=== PATIENT | female | born 1965 | race Caucasian/White ===

== ENCOUNTER 2018-10-09 11:30 | Emergency (ER) | payer BC, SELFPAY ==
[2018-10-09 11:39] VITALS: BP 160/77; PULSE 76; RESP 15; TEMP 36.7; O2SAT 98; BMI 22.4
--- NOTE | 2018-10-09 12:07 | DI.RAD.S_ITS ---
PROCEDURE: XR CHEST 1V INDICATIONS: chest pain TECHNIQUE: One view of the chest was acquired. COMPARISON: None. FINDINGS: Surgical changes and devices: None. Lungs and pleura: Lungs are clear. No pleural effusions or pneumothorax. Mediastinum: Mediastinal contours appear normal. Heart size is normal. Bones and chest wall: No suspicious bony lesions. Overlying soft tissues appear unremarkable. IMPRESSION: No acute cardiopulmonary process. There are no imaging findings to explain patient's chest pain. Dictated by: Bryant Davis M.D. on 10/09/2018 at 12:32 Approved by: Bryant Davis M.D. on 10/09/2018 at 12:33
--- NOTE | 2018-10-09 12:09 | ED.BACK ---
HPI - Back Pain/Injury <JIM Oswald-BC - Last Filed: 10/09/18 18:01> General Chief Complaint: Back Pain/Injury Stated Complaint: pain in back/around front,lightheaded,weak Time Seen by Provider: 10/09/18 11:55 Source: patient and family Mode of arrival: ambulatory Limitations: no limitations History of Present Illness HPI Narrative: The patient is a 53-year-old female nonsmoker with history of PVCs who presents with a chief complaint of squeezing back pain, starts in her mid back and radiates around to the front of her chest. She states this has been going on since 4:00 a.m.. Than earlier today at approximately 11 she had an episode of weakness, felt lightheaded woozy. She denies any nausea, vomiting, diarrhea. She states she has a family history of cardiac disease so she is worried about her heart. She states she felt as though her heart were racing and she was having palpitations. She brings might be musculoskeletal pain due to and work out yesterday, she was on an elliptical with increased resistance and increased range of motion for her arms, so she is concerned that she pulled some muscles. She applied several salon pas patches to her back to see if it would help. Related Data Home Medications Medication Instructions Recorded Confirmed cholecalciferol (vitamin D3) 1,000 unit PO DAILY #0 07/08/12 10/09/18 [Vitamin D3] vitamin B complex 1 tab PO DAILY #0 07/08/12 10/09/18 Ildefonso-E 1 tab PO DAILY 10/09/18 10/09/18 Allergies Allergy/AdvReac Type Severity Reaction Status Date / Time Sulfa (Sulfonamide Allergy Mild Verified 10/09/18 13:27 Antibiotics) Review of Systems <JIM Oswald-BC - Last Filed: 10/09/18 18:01> Review of Systems GENERAL: Denies chills, fatigue, malaise, fever, sweats. HEENT: Denies sinus pain, ear pain, sore throat, difficulty swallowing, dizziness. RESPIRATORY: Denies dyspnea, cough, wheezing, hemoptysis, sputum. CARDIOVASCULAR: See HPI GASTROINTESTINAL: Denies nausea, vomiting, abdominal pain, diarrhea, constipation, melena. : Denies dysuria, frequency, incontinence, hematuria, urinary retention. MUSCULOSKELETAL: See HPI SKIN: Denies rash, skin lesions, or other NEUROLOGIC: Denies weakness, headache, numbness, change in speech, confusion, seizures, incoordination. PSYCHIATRIC: No concerning psychosocial issues. 12 point review of systems is negative except for those stated above PFSH <Laurie JIM Zaragoza- - Last Filed: 10/09/18 18:01> Social History Smoking Status: Never smoker Social History Smoking Status: Never smoker Exam <JIM Oswald- - Last Filed: 10/09/18 18:01> Narrative Exam Narrative: GENERAL: This is a well-nourished, well-developed patient, no acute distress HEAD: Atraumatic. Normocephalic. No temporal or scalp tenderness. EYES: Pupils equal round and reactive. Extraocular motions intact. No scleral icterus. No injection or drainage. ENT: Nose without bleeding, purulent drainage or septal hematoma. Throat without erythema, tonsillar hypertrophy or exudate. Uvula midline. Airway patent. NECK: Trachea midline. No JVD or lymphadenopathy. Supple, nontender, no meningeal signs. CARDIOVASCULAR: Regular rate and rhythm without murmurs, gallops, or rubs. No cough. No increased respiratory effort. No stridor. No accessory muscle use. Patient has pain to anterior posterior chest wall compression as well as lateral chest wall compression. RESPIRATORY: Clear to auscultation. Breath sounds equal bilaterally. No wheezes, rales, or rhonchi. No cough. No increased respiratory effort. No accessory muscle use GASTROINTESTINAL: Abdomen soft, non-tender, nondistended. No hepato-splenomegaly, or palpable masses. No guarding. EXTREMITIES: No clubbing, cyanosis, or edema. No joint tenderness, effusion, or edema noted. BACK: Nontender without deformity or crepitance. No flank tenderness. Pain to paraspinal muscles of T-spine. NEURO: AOx3. SKIN: No rash or erythema. Initial Vital Signs Initial Vital Signs: Vital Signs Temperature 98.1 F 10/09/18 11:39 Pulse Rate 76 10/09/18 11:39 Respiratory Rate 15 10/09/18 11:39 Blood Pressure 160/77 H 10/09/18 11:39 Pulse Oximetry 98 10/09/18 11:39 <Corrina Watson DO - Last Filed: 10/11/18 02:00> Initial Vital Signs Initial Vital Signs: Vital Signs Temperature 98.1 F 10/09/18 11:39 Pulse Rate 76 10/09/18 11:39 Respiratory Rate 15 10/09/18 11:39 Blood Pressure 160/77 H 10/09/18 11:39 Pulse Oximetry 98 10/09/18 11:39 Scores <ADARSH Oswald - Last Filed: 10/09/18 18:01> HEART Score Heart Score history: Slightly Suspicious Heart Score EKG: Normal Heart Score Age: 45-64 years old Heart Score risk factors: No known risk factors Heart Score troponin: < or = to normal limit Heart Score Total: 1 Wells' Criteria for PE Clinical signs and symptoms of DVT: No PE is #1 Dx or equally likely: No Heart rate > 100: No Immobilization at least 3 days or surg in previous 4 weeks: No History of PE or DVT: No Hemoptysis: No Malignancy w/Treatment within 6 months or palliative: No Wells' PE Score total: 0 Course <ADARSH Oswald - Last Filed: 10/09/18 18:01> Orders Ordered: Discontinued Medications Sodium Chloride (Normal Saline 0.9%) 1,000 mls @ 150 mls/hr IV CONT JACKIE Last Infusion: 10/09/18 17:09 Dose: 0 mls/hr Admin: 10/09/18 13:40 Dose: 150 mls/hr Ketorolac Tromethamine (Toradol) 30 mg IV NOW ONE Stop: 10/09/18 13:25 Last Admin: 10/09/18 13:40 Dose: 30 mg Vital Signs - 8 hr 10/09/18 11:39 10/09/18 12:30 10/09/18 13:00 Temperature 98.1 F Pulse Rate 76 74 72 Respiratory Rate 15 18 17 Blood Pressure 160/77 H Blood Pressure [Right Arm] 135/70 129/71 Pulse Oximetry 98 99 99 10/09/18 14:00 10/09/18 15:00 10/09/18 17:07 Temperature Pulse Rate 72 76 71 Respiratory Rate 16 13 14 Blood Pressure 117/71 Blood Pressure [Right Arm] 111/71 109/67 Pulse Oximetry 100 100 98 <DO Devorah Nino Last Filed: 10/11/18 02:00> Orders Ordered: Discontinued Medications Sodium Chloride (Normal Saline 0.9%) 1,000 mls @ 150 mls/hr IV CONT JACKIE Last Infusion: 10/09/18 17:09 Dose: 0 mls/hr Admin: 10/09/18 13:40 Dose: 150 mls/hr Ketorolac Tromethamine (Toradol) 30 mg IV NOW ONE Stop: 10/09/18 13:25 Last Admin: 10/09/18 13:40 Dose: 30 mg Vital Signs - 8 hr 10/09/18 11:39 10/09/18 12:30 10/09/18 13:00 Temperature 98.1 F Pulse Rate 76 74 72 Respiratory Rate 15 18 17 Blood Pressure 160/77 H Blood Pressure [Right Arm] 135/70 129/71 Pulse Oximetry 98 99 99 10/09/18 14:00 10/09/18 15:00 10/09/18 17:07 Temperature Pulse Rate 72 76 71 Respiratory Rate 16 13 14 Blood Pressure 117/71 Blood Pressure [Right Arm] 111/71 109/67 Pulse Oximetry 100 100 98 MDM - Back Pain/Injury <Laurie Zaragoza, [employer] COORDINATOR- - Last Filed: 10/09/18 18:01> Lab Data Result diagrams: 10/09/18 12:30 10/09/18 12:30 Lab Results 10/09/18 10/09/18 10/09/18 Range/Units 12:30 12:30 12:30 WBC 7.0 (4.5-11.0) X10^3/uL RBC 4.36 (4.0-5.2) X10^6/uL Hgb 13.5 (12.0-16.0) g/dL Hct 40.8 (36-46) % MCV 93.6 (80-100) fL MCH 31.1 (26-34) PG MCHC 33.2 (30-36) % RDW 12.0 (11.6-14.8) % Plt Count 327 (150-400) X10^3/uL Neut % (Auto) 69.5 (50-75) % Lymph % (Auto) 24.9 L (25-40) % Amador % (Auto) 4.6 (3-14) % Eos % (Auto) 0.4 L (2-4) % Baso % (Auto) 0.6 (0-2) % Neut # (Auto) 4900 (6547-2620) /uL Lymph # (Auto) 1700 (3975-5957) /uL Amador # (Auto) 300 (0-900) /uL Eos # (Auto) 0 (0-450) /uL Baso # (Auto) 0 (0-100) /uL PT 11.7 (10.1-12.7) SECONDS INR 1.0 (0.9-1.3) APTT 29 (26.4-36.2) SECONDS Sodium 141 (137-145) mmol/L Potassium 3.9 (3.4-5.1) mmol/L Chloride 102 (98-107) mmol/L Carbon Dioxide 26 (22-32) mmol/L BUN 16 (7-17) mg/dL Creatinine 0.70 (0.52-1.04) mg/dL Estimated GFR > 60.0 (>60) mL/min BUN/Creatinine Ratio 22.9 H (6-22) Glucose 87 (70-100) mg/dL Calcium 9.8 (8.4-10.2) mg/dL Total Bilirubin 0.5 (0.2-1.3) mg/dL AST 26 (14-36) IU/L ALT 21 (9-52) IU/L Alkaline Phosphatase 53 (38-126) U/L Total Creatine Kinase 90 (30-135) U/L CK-MB (CK-2) TNP CK-MB (CK-2) Rel Index TNP Troponin I < 0.012 (0.01-0.034) ng/mL B-Natriuretic Peptide < 100 (<100) Total Protein 8.4 H (6.3-8.2) g/dL Albumin 4.8 (3.5-5.0) g/dL Globulin 3.6 (1.7-4.1) g/dL Albumin/Globulin Ratio 1.3 (1.0-2.8) Lipase 124 (23-300) U/L 10/09/18 Range/Units 15:49 WBC (4.5-11.0) X10^3/uL RBC (4.0-5.2) X10^6/uL Hgb (12.0-16.0) g/dL Hct (36-46) % MCV (80-100) fL MCH (26-34) PG MCHC (30-36) % RDW (11.6-14.8) % Plt Count (150-400) X10^3/uL Neut % (Auto) (50-75) % Lymph % (Auto) (25-40) % Amador % (Auto) (3-14) % Eos % (Auto) (2-4) % Baso % (Auto) (0-2) % Neut # (Auto) (1312-9912) /uL Lymph # (Auto) (3194-5074) /uL Amador # (Auto) (0-900) /uL Eos # (Auto) (0-450) /uL Baso # (Auto) (0-100) /uL PT (10.1-12.7) SECONDS INR (0.9-1.3) APTT (26.4-36.2) SECONDS Sodium (137-145) mmol/L Potassium (3.4-5.1) mmol/L Chloride (98-107) mmol/L Carbon Dioxide (22-32) mmol/L BUN (7-17) mg/dL Creatinine (0.52-1.04) mg/dL Estimated GFR (>60) mL/min BUN/Creatinine Ratio (6-22) Glucose (70-100) mg/dL Calcium (8.4-10.2) mg/dL Total Bilirubin (0.2-1.3) mg/dL AST (14-36) IU/L ALT (9-52) IU/L Alkaline Phosphatase (38-126) U/L Total Creatine Kinase (30-135) U/L CK-MB (CK-2) CK-MB (CK-2) Rel Index Troponin I < 0.012 (0.01-0.034) ng/mL B-Natriuretic Peptide (<100) Total Protein (6.3-8.2) g/dL Albumin (3.5-5.0) g/dL Globulin (1.7-4.1) g/dL Albumin/Globulin Ratio (1.0-2.8) Lipase (23-300) U/L Urine Dip Bedside Urine Glucose Negative Bedside Urine Bilirubin - Negative Bedside Urine Ketone - Negative Urine Specific [place] 1.010 Bedside Urine Occult Blood ++ Bedside Urine pH 6.0 Bedside Urine Protein - Negative Bedside Urine Urobilinogen - Negative Bedside Urine Nitrite - Negative Bedside Urine Leukocytes - Negative Esterase Imaging Data Chest x-ray: Radiologist's impression: [address] [address] XRay Report Signed Patient: Olamide Pretty MMR#: [id number] : 1965Acct:[id number] Age/Sex: 53 / FDate of Service: 10/09/18 Loc: ED Accession Number: [id number] Procedure: XR chest 1V Ordering Provider: Laurie Zaragoza PROCEDURE: XR CHEST 1V INDICATIONS: chest pain TECHNIQUE: One view of the chest was acquired. COMPARISON: None. FINDINGS: Surgical changes and devices: None. Lungs and pleura: Lungs are clear. No pleural effusions or pneumothorax. Mediastinum: Mediastinal contours appear normal. Heart size is normal. Bones and chest wall: No suspicious bony lesions. Overlying soft tissues appear unremarkable. IMPRESSION: No acute cardiopulmonary process. There are no imaging findings to explain patient's chest pain. Dictated by: Bryant Davis M.D. on 10/09/2018 at 12:32 Approved by: Bryant Davis M.D. on 10/09/2018 at 12:33 ECG Data Attestation: I personally reviewed and interpreted this ECG as follows: Interpretation: Sinus rhythm. Ventricular rate 80. No ST elevation noted. No ectopy noted. IA interval 147. QRS interval 90. Viewed by Dr. Shirley ALEGRIA Narrative Medical decision making narrative: The patient is a 53-year-old female who presents with a chief complaint of back pain tightening around her chest. She also had some associated palpitations as well as lightheadedness that was temporary. She has 2 negative troponins. She has normal chest x-ray. Grossly normal lab work. She has been in sinus rhythm throughout her stay in the emergency department and has a heart score of 1 due to age. She felt much improved after single dose of Toradol. I believe she likely has muscle spasm due to her exercise on an elliptical yesterday. She states that she was moving her arms back and forth extending beyond her reach. I discussed at length that she is to follow up with primary care provider. Given that she is concerned about her PVCs, she may benefit from an outpatient Holter monitor. She was hemodynamically stable in normal sinus rhythm throughout her stay in the emergency department. She is nontoxic appearing. Patient has no questions or concerns upon discharge. I discussed at length follow up with PCP as well as return precautions of concern of heart attack stroke or acute concerns. Patient and state understanding of no questions or concerns. <Corrina Watson, DO - Last Filed: 10/11/18 02:00> Lab Data Lab Results 10/09/18 10/09/18 10/09/18 Range/Units 12:30 12:30 12:30 WBC 7.0 (4.5-11.0) X10^3/uL RBC 4.36 (4.0-5.2) X10^6/uL Hgb 13.5 (12.0-16.0) g/dL Hct 40.8 (36-46) % MCV 93.6 (80-100) fL MCH 31.1 (26-34) PG MCHC 33.2 (30-36) % RDW 12.0 (11.6-14.8) % Plt Count 327 (150-400) X10^3/uL Neut % (Auto) 69.5 (50-75) % Lymph % (Auto) 24.9 L (25-40) % Amador % (Auto) 4.6 (3-14) % Eos % (Auto) 0.4 L (2-4) % Baso % (Auto) 0.6 (0-2) % Neut # (Auto) 4900 (5368-4558) /uL Lymph # (Auto) 1700 (1078-0133) /uL Amador # (Auto) 300 (0-900) /uL Eos # (Auto) 0 (0-450) /uL Baso # (Auto) 0 (0-100) /uL PT 11.7 (10.1-12.7) SECONDS INR 1.0 (0.9-1.3) APTT 29 (26.4-36.2) SECONDS Sodium 141 (137-145) mmol/L Potassium 3.9 (3.4-5.1) mmol/L Chloride 102 (98-107) mmol/L Carbon Dioxide 26 (22-32) mmol/L BUN 16 (7-17) mg/dL Creatinine 0.70 (0.52-1.04) mg/dL Estimated GFR > 60.0 (>60) mL/min BUN/Creatinine Ratio 22.9 H (6-22) Glucose 87 (70-100) mg/dL Calcium 9.8 (8.4-10.2) mg/dL Total Bilirubin 0.5 (0.2-1.3) mg/dL AST 26 (14-36) IU/L ALT 21 (9-52) IU/L Alkaline Phosphatase 53 (38-126) U/L Total Creatine Kinase 90 (30-135) U/L CK-MB (CK-2) TNP CK-MB (CK-2) Rel Index TNP Troponin I < 0.012 (0.01-0.034) ng/mL B-Natriuretic Peptide < 100 (<100) Total Protein 8.4 H (6.3-8.2) g/dL Albumin 4.8 (3.5-5.0) g/dL Globulin 3.6 (1.7-4.1) g/dL Albumin/Globulin Ratio 1.3 (1.0-2.8) Lipase 124 (23-300) U/L 10/09/18 Range/Units 15:49 WBC (4.5-11.0) X10^3/uL RBC (4.0-5.2) X10^6/uL Hgb (12.0-16.0) g/dL Hct (36-46) % MCV (80-100) fL MCH (26-34) PG MCHC (30-36) % RDW (11.6-14.8) % Plt Count (150-400) X10^3/uL Neut % (Auto) (50-75) % Lymph % (Auto) (25-40) % Amador % (Auto) (3-14) % Eos % (Auto) (2-4) % Baso % (Auto) (0-2) % Neut # (Auto) (8072-3086) /uL Lymph # (Auto) (5084-8335) /uL Amador # (Auto) (0-900) /uL Eos # (Auto) (0-450) /uL Baso # (Auto) (0-100) /uL PT (10.1-12.7) SECONDS INR (0.9-1.3) APTT (26.4-36.2) SECONDS Sodium (137-145) mmol/L Potassium (3.4-5.1) mmol/L Chloride (98-107) mmol/L Carbon Dioxide (22-32) mmol/L BUN (7-17) mg/dL Creatinine (0.52-1.04) mg/dL Estimated GFR (>60) mL/min BUN/Creatinine Ratio (6-22) Glucose (70-100) mg/dL Calcium (8.4-10.2) mg/dL Total Bilirubin (0.2-1.3) mg/dL AST (14-36) IU/L ALT (9-52) IU/L Alkaline Phosphatase (38-126) U/L Total Creatine Kinase (30-135) U/L CK-MB (CK-2) CK-MB (CK-2) Rel Index Troponin I < 0.012 (0.01-0.034) ng/mL B-Natriuretic Peptide (<100) Total Protein (6.3-8.2) g/dL Albumin (3.5-5.0) g/dL Globulin (1.7-4.1) g/dL Albumin/Globulin Ratio (1.0-2.8) Lipase (23-300) U/L Urine Dip Bedside Urine Glucose Negative Bedside Urine Bilirubin - Negative Bedside Urine Ketone - Negative Urine Specific [place] 1.010 Bedside Urine Occult Blood ++ Bedside Urine pH 6.0 Bedside Urine Protein - Negative Bedside Urine Urobilinogen - Negative Bedside Urine Nitrite - Negative Bedside Urine Leukocytes - Negative Esterase ECG Data Attestation: I personally reviewed and interpreted this ECG as follows: Prior ECG tracings: not available for review Interpretation: Normal sinus rhythm rate 80 IA interval [address] changes no T-wave inversions Discharge Plan Departure Patient Disposition: Home Clinical Impression: Atypical chest pain, Back muscle spasm Discharge Date/Time: 10/09/18 17:16 Interventions: ED Discharge Assessment Last Done: 10/09/18 17:07 Instructions: DI for Atypical Chest Pain, DI for Thoracic Back Pain, DI for Muscle Spasm Activity Restrictions/Additional Instructions: Today you have normal cardiac enzymes twice, normal chest x-ray, normal lactate lytes etc. Your EKG has been normal throughout your stay. You responded well to anti-inflammatories. Please use Motrin for your musculoskeletal pain. Please come back to the emergency department for any acute concerns such as chest pain, shortness of breath, concern of heart attack or stroke. Please follow up with primary care provider as soon as possible. Prescriptions: No Action vitamin B complex Tablet 1 tab PO DAILY Qty: 0 RF: 0 cholecalciferol (vitamin D3) [Vitamin D3] 1,000 unit Capsule 1,000 unit PO DAILY Qty: 0 RF: 0 Ildefonso-E 1 tab PO DAILY RF: 0 <Corrina Watson DO - Last Filed: 10/11/18 02:00> Cosign ED Attending Coskasandraature Attestation: I was immediately available in the department for consultation. Documentation has been reviewed. I agree with assessment and plan.
--- NOTE | 2018-10-09 12:12 | ED_ITS ---
HPI - Back Pain/Injury <JIM Oswald-BC - Last Filed: 10/09/18 18:01> General Chief Complaint: Back Pain/Injury Stated Complaint: pain in back/around front,lightheaded,weak Time Seen by Provider: 10/09/18 11:55 Source: patient and family Mode of arrival: ambulatory Limitations: no limitations History of Present Illness HPI Narrative: The patient is a 53-year-old female nonsmoker with history of PVCs who presents with a chief complaint of squeezing back pain, starts in her mid back and radiates around to the front of her chest. She states this has been going on since 4:00 a.m.. Than earlier today at approximately 11 she had an episode of weakness, felt lightheaded woozy. She denies any nausea, vomiting, diarrhea. She states she has a family history of cardiac disease so she is worried about her heart. She states she felt as though her heart were racing and she was having palpitations. She brings might be musculoskeletal pain due to and work out yesterday, she was on an elliptical with increased resistance and increased range of motion for her arms, so she is concerned that she pulled some muscles. She applied several salon pas patches to her back to see if it would help. Related Data Home Medications Medication Instructions Recorded Confirmed cholecalciferol (vitamin D3) 1,000 unit PO DAILY #0 07/08/12 10/09/18 [Vitamin D3] vitamin B complex 1 tab PO DAILY #0 07/08/12 10/09/18 Ildefonso-E 1 tab PO DAILY 10/09/18 10/09/18 Allergies Allergy/AdvReac Type Severity Reaction Status Date / Time Sulfa (Sulfonamide Allergy Mild Verified 10/09/18 13:27 Antibiotics) Review of Systems <JIM Oswald-BC - Last Filed: 10/09/18 18:01> Review of Systems GENERAL: Denies chills, fatigue, malaise, fever, sweats. HEENT: Denies sinus pain, ear pain, sore throat, difficulty swallowing, dizziness. RESPIRATORY: Denies dyspnea, cough, wheezing, hemoptysis, sputum. CARDIOVASCULAR: See HPI GASTROINTESTINAL: Denies nausea, vomiting, abdominal pain, diarrhea, co nstipation, melena. : Denies dysuria, frequency, incontinence, hematuria, urinary retention. MUSCULOSKELETAL: See HPI SKIN: Denies rash, skin lesions, or other NEUROLOGIC: Denies weakness, headache, numbness, change in speech, confusion, seizures, incoordination. PSYCHIATRIC: No concerning psychosocial issues. 12 point review of systems is negative except for those stated above PFSH <Laurie JIM Zaragoza- - Last Filed: 10/09/18 18:01> Social History Smoking Status: Never smoker Social History Smoking Status: Never smoker Exam <JIM Oswald- - Last Filed: 10/09/18 18:01> Narrative Exam Narrative: GENERAL: This is a well-nourished, well-developed patient, no acute distress HEAD: Atraumatic. Normocephalic. No temporal or scalp tenderness. EYES: Pupils equal round and reactive. Extraocular motions intact. No scleral icterus. No injection or drainage. ENT: Nose without bleeding, purulent drainage or septal hematoma. Throat without erythema, tonsillar hypertrophy or exudate. Uvula midline. Airway patent. NECK: Trachea midline. No JVD or lymphadenopathy. Supple, nontender, no meningeal signs. CARDIOVASCULAR: Regular rate and rhythm without murmurs, gallops, or rubs. No cough. No increased respiratory effort. No stridor. No accessory muscle use. Patient has pain to anterior posterior chest wall compression as well as lateral chest wall compression. RESPIRATORY: Clear to auscultation. Breath sounds equal bilaterally. No wheezes, rales, or rhonchi. No cough. No increased respiratory effort. No accessory muscle use GASTROINTESTINAL: Abdomen soft, non-tender, nondistended. No hepato- splenomegaly, or palpable masses. No guarding. EXTREMITIES: No clubbing, cyanosis, or edema. No joint tenderness, effusion, or edema noted. BACK: Nontender without deformity or crepitance. No flank tenderness. Pain to paraspinal muscles of T-spine. NEURO: AOx3. SKIN: No rash or erythema. Initial Vital Signs Initial Vital Signs: Vital Signs Temperature 98.1 F 10/09/18 11:39 Pulse Rate 76 10/09/18 11:39 Respiratory Rate 15 10/09/18 11:39 Blood Pressure 160/77 H 10/09/18 11:39 Pulse Oximetry 98 10/09/18 11:39 <Corrina Watson DO - Last Filed: 10/11/18 02:00> Initial Vital Signs Initial Vital Signs: Vital Signs Temperature 98.1 F 10/09/18 11:39 Pulse Rate 76 10/09/18 11:39 Respiratory Rate 15 10/09/18 11:39 Blood Pressure 160/77 H 10/09/18 11:39 Pulse Oximetry 98 10/09/18 11:39 Scores <ADARSH Oswald - Last Filed: 10/09/18 18:01> HEART Score Heart Score history: Slightly Suspicious Heart Score EKG: Normal Heart Score Age: 45-64 years old Heart Score risk factors: No known risk factors Heart Score troponin: < or = to normal limit Heart Score Total: 1 Wells' Criteria for PE Clinical signs and symptoms of DVT: No PE is #1 Dx or equally likely: No Heart rate > 100: No Immobilization at least 3 days or surg in previous 4 weeks: No History of PE or DVT: No Hemoptysis: No Malignancy w/Treatment within 6 months or palliative: No Wells' PE Score total: 0 Course <ADARSH Oswald - Last Filed: 10/09/18 18:01> Orders Ordered: Discontinued Medications Sodium Chloride (Normal Saline 0.9%) 1,000 mls @ 150 mls/hr IV CONT JACKIE Last Infusion: 10/09/18 17:09 Dose: 0 mls/hr Admin: 10/09/18 13:40 Dose: 150 mls/hr Ketorolac Tromethamine (Toradol) 30 mg IV NOW ONE Stop: 10/09/18 13:25 Last Admin: 10/09/18 13:40 Dose: 30 mg Vital Signs - 8 hr 10/09/18 11:39 10/09/18 12:30 10/09/18 13:00 Temperature 98.1 F Pulse Rate 76 74 72 Respiratory Rate 15 18 17 Blood Pressure 160/77 H Blood Pressure [Right Arm] 135/70 129/71 Pulse Oximetry 98 99 99 10/09/18 14:00 10/09/18 15:00 10/09/18 17:07 Temperature Pulse Rate 72 76 71 Respiratory Rate 16 13 14 Blood Pressure 117/71 Blood Pressure [Right Arm] 111/71 109/67 Pulse Oximetry 100 100 98 <Corrina Watson DO - Last Filed: 10/11/18 02:00> Orders Ordered: Discontinued Medications Sodium Chloride (Normal Saline 0.9%) 1,000 mls @ 150 mls/hr IV CONT JACKIE Last Infusion: 10/09/18 17:09 Dose: 0 mls/hr Admin: 10/09/18 13:40 Dose: 150 mls/hr Ketorolac Tromethamine (Toradol) 30 mg IV NOW ONE Stop: 10/09/18 13:25 Last Admin: 10/09/18 13:40 Dose: 30 mg Vital Signs - 8 hr 10/09/18 11:39 10/09/18 12:30 10/09/18 13:00 Temperature 98.1 F Pulse Rate 76 74 72 Respiratory Rate 15 18 17 Blood Pressure 160/77 H Blood Pressure [Right Arm] 135/70 129/71 Pulse Oximetry 98 99 99 10/09/18 14:00 10/09/18 15:00 10/09/18 17:07 Temperature Pulse Rate 72 76 71 Respiratory Rate 16 13 14 Blood Pressure 117/71 Blood Pressure [Right Arm] 111/71 109/67 Pulse Oximetry 100 100 98 MDM - Back Pain/Injury <Laurie Zaragoza, JIM-BC - Last Filed: 10/09/18 18:01> Lab Data Result diagrams: 10/09/18 12:30 10/09/18 12:30 Lab Results 10/09/18 10/09/18 10/09/18 Range/Units 12:30 12:30 12:30 WBC 7.0 (4.5-11.0) X10^3/uL RBC 4.36 (4.0-5.2) X10^6/uL Hgb 13.5 (12.0-16.0) g/dL Hct 40.8 (36-46) % MCV 93.6 (80-100) fL MCH 31.1 (26-34) PG MCHC 33.2 (30-36) % RDW 12.0 (11.6-14.8) % Plt Count 327 (150-400) X10^3/uL Neut % (Auto) 69.5 (50-75) % Lymph % (Auto) 24.9 L (25-40) % [place] % (Auto) 4.6 (3-14) % Eos % (Auto) 0.4 L (2-4) % Baso % (Auto) 0.6 (0-2) % Neut # (Auto) 4900 (2459-1362) /uL Lymph # (Auto) 1700 (0039-5955) /uL [place] # (Auto) 300 (0-900) /uL Eos # (Auto) 0 (0-450) /uL Baso # (Auto) 0 (0-100) /uL PT 11.7 (10.1-12.7) SECONDS INR 1.0 (0.9-1.3) APTT 29 (26.4-36.2) SECONDS Sodium 141 (137-145) mmol/L Potassium 3.9 (3.4-5.1) mmol/L Chloride 102 (98-107) mmol/L Carbon Dioxide 26 (22-32) mmol/L BUN 16 (7-17) mg/dL Creatinine 0.70 (0.52-1.04) mg/dL Estimated GFR > 60.0 (>60) mL/min BUN/Creatinine Ratio 22.9 H (6-22) Glucose 87 (70-100) mg/dL Calcium 9.8 (8.4-10.2) mg/dL Total Bilirubin 0.5 (0.2-1.3) mg/dL AST 26 (14-36) IU/L ALT 21 (9-52) IU/L Alkaline Phosphatase 53 (38-126) U/L Total Creatine Kinase 90 (30-135) U/L CK-MB (CK-2) TNP CK-MB (CK-2) Rel Index TNP Troponin I < 0.012 (0.01-0.034) ng/mL B-Natriuretic Peptide < 100 (<100) Total Protein 8.4 H (6.3-8.2) g/dL Albumin 4.8 (3.5-5.0) g/dL Globulin 3.6 (1.7-4.1) g/dL Albumin/Globulin Ratio 1.3 (1.0-2.8) Lipase 124 (23-300) U/L 10/09/ Range/Units 15:49 WBC (4.5-11.0) X10^3/uL RBC (4.0-5.2) X10^6/uL Hgb (12.0-16.0) g/dL Hct (36-46) % MCV (80-100) fL MCH (26-34) PG MCHC (30-36) % RDW (11.6-14.8) % Plt Count (150-400) X10^3/uL Neut % (Auto) (50-75) % Lymph % (Auto) (25-40) % [place] % (Auto) (3-14) % Eos % (Auto) (2-4) % Baso % (Auto) (0-2) % Neut # (Auto) (3318-8258) /uL Lymph # (Auto) (9850-0152) /uL [place] # (Auto) (0-900) /uL Eos # (Auto) (0-450) /uL Baso # (Auto) (0-100) /uL PT (10.1-12.7) SECONDS INR (0.9-1.3) APTT (26.4-36.2) SECONDS Sodium (137-145) mmol/L Potassium (3.4-5.1) mmol/L Chloride (98-107) mmol/L Carbon Dioxide (22-32) mmol/L BUN (7-17) mg/dL Creatinine (0.52-1.04) mg/dL Estimated GFR (>60) mL/min BUN/Creatinine Ratio (6-22) Glucose (70-100) mg/dL Calcium (8.4-10.2) mg/dL Total Bilirubin (0.2-1.3) mg/dL AST (14-36) IU/L ALT (9-52) IU/L Alkaline Phosphatase (38-126) U/L Total Creatine Kinase (30-135) U/L CK-MB (CK-2) CK-MB (CK-2) Rel Index Troponin I < 0.012 (0.01-0.034) ng/mL B-Natriuretic Peptide (<100) Total Protein (6.3-8.2) g/dL Albumin (3.5-5.0) g/dL Globulin (1.7-4.1) g/dL Albumin/Globulin Ratio (1.0-2.8) Lipase (23-300) U/L Urine Dip Bedside Urine Glucose Negative Bedside Urine Bilirubin - Negative Bedside Urine Ketone - Negative Urine Specific [place] 1.010 Bedside Urine Occult Blood ++ Bedside Urine pH 6.0 Bedside Urine Protein - Negative Bedside Urine Urobilinogen - Negative Bedside Urine Nitrite - Negative Bedside Urine Leukocytes - Negative Esterase Imaging Data Chest x-ray: Radiologist's impression: [address] [id number] XRay Report Signed Patient: Olamide Pretty MMR#: [id number] : 1965Acct:[id number] Age/Sex: 53 / FDate of Service: 10/09/18 Loc: ED Accession Number: [id number] Procedure: XR chest 1V Ordering Provider: Laurie Zaragoza PROCEDURE: XR CHEST 1V INDICATIONS: chest pain TECHNIQUE: One view of the chest was acquired. COMPARISON: None. FINDINGS: Surgical changes and devices: None. Lungs and pleura: Lungs are clear. No pleural effusions or pneumothorax. Mediastinum: Mediastinal contours appear normal. Heart size is normal. Bones and chest wall: No suspicious bony lesions. Overlying soft tissues appear unremarkable. IMPRESSION: No acute cardiopulmonary process. There are no imaging findings to explain patient's chest pain. Dictated by: Bryant Davis M.D. on 10/09/2018 at 12:32 Approved by: Bryant Davis M.D. on 10/09/2018 at 12:33 ECG Data Attestation: I personally reviewed and interpreted this ECG as follows: Interpretation: Sinus rhythm. Ventricular rate 80. No ST elevation noted. No ectopy noted. MN interval 147. QRS interval 90. Viewed by Dr. Shirley ALEGRIA Narrative Medical decision making narrative: The patient is a 53-year-old female who prese [facility] with a chief complaint of back pain tightening around her chest. She also had some associated palpitations as well as lightheadedness that was temporary. She has 2 negative troponins. She has normal chest x-ray. Grossly normal lab work. She has been in sinus rhythm throughout her stay in the emergency department and has a heart score of 1 due to age. She felt much improved after single dose of Toradol. I believe she likely has muscle spasm due to her exercise on an elliptical yesterday. She states that she was moving her arms back and forth extending beyond her reach. I discussed at length that she is to follow up with primary care provider. Given that she is concerned about her PVCs, she may benefit from an outpatient Holter monitor. She was hemodynamically stable in normal sinus rhythm throughout her stay in the emergency department. She is nontoxic appearing. Patient has no questions or concerns upon discharge. I discussed at length follow up with PCP as well as r eturn precautions of concern of heart attack stroke or acute concerns. Patient and state understanding of no questions or concerns. <Corrina Shirley, DO - Last Filed: 10/11/18 02:00> Lab Data Lab Results 10/09/18 10/09/18 10/09/18 Range/Units 12:30 12:30 12:30 WBC 7.0 (4.5-11.0) X10^3/uL RBC 4.36 (4.0-5.2) X10^6/uL Hgb 13.5 (12.0-16.0) g/dL Hct 40.8 (36-46) % MCV 93.6 (80-100) fL MCH 31.1 (26-34) PG MCHC 33.2 (30-36) % RDW 12.0 (11.6-14.8) % Plt Count 327 (150-400) X10^3/uL Neut % (Auto) 69.5 (50-75) % Lymph % (Auto) 24.9 L (25-40) % [place] % (Auto) 4.6 (3-14) % Eos % (Auto) 0.4 L (2-4) % Baso % (Auto) 0.6 (0-2) % Neut # (Auto) 4900 (1975-0518) /uL Lymph # (Auto) 1700 (4936-3730) /uL [place] # (Auto) 300 (0-900) /uL Eos # (Auto) 0 (0-450) /uL Baso # (Auto) 0 (0-100) /uL PT 11.7 (10.1-12.7) SECONDS INR 1.0 (0.9-1.3) APTT 29 (26.4-36.2) SECONDS Sodium 141 (137-145) mmol/L Potassium 3.9 (3.4-5.1) mmol/L Chloride 102 (98-107) mmol/L Carbon Dioxide 26 (22-32) mmol/L BUN 16 (7-17) mg/dL Creatinine 0.70 (0.52-1.04) mg/dL Estimated GFR > 60.0 (>60) mL/min BUN/Creatinine Ratio 22.9 H (6-22) Glucose 87 (70-100) mg/dL Calcium 9.8 (8.4-10.2) mg/dL Total Bilirubin 0.5 (0.2-1.3) mg/dL AST 26 (14-36) IU/L ALT 21 (9-52) IU/L Alkaline Phosphatase 53 (38-126) U/L Total Creatine Kinase 90 (30-135) U/L CK-MB (CK-2) TNP CK-MB (CK-2) Rel Index TNP Troponin I < 0.012 (0.01-0.034) ng/mL B-Natriuretic Peptide < 100 (<100) Total Protein 8.4 H (6.3-8.2) g/dL Albumin 4.8 (3.5-5.0) g/dL Globulin 3.6 (1.7-4.1) g/dL Albumin/Globulin Ratio 1.3 (1.0-2.8) Lipase 124 (23-300) U/L 10/09/18 Range/Units 15:49 WBC (4.5-11.0) X10^3/uL RBC (4.0-5.2) X10^6/uL Hgb (12.0-16.0) g/dL Hct (36-46) % MCV (80-100) fL MCH (26-34) PG MCHC (30-36) % RDW (11.6-14.8) % Plt Count (150-400) X10^3/uL Neut % (Auto) (50-75) % Lymph % (Auto) (25-40) % [place] % (Auto) (3-14) % Eos % (Auto) (2-4) % Baso % (Auto) (0-2) % Neut # (Auto) (5944-4446) /uL Lymph # (Auto) (0483-8929) /uL [place] # (Auto) (0-900) /uL Eos # (Auto) (0-450) /uL Baso # (Auto) (0-100) /uL PT (10.1-12.7) SECONDS INR (0.9-1.3) APTT (26.4-36.2) SECONDS Sodium (137-145) mmol/L Potassium (3.4-5.1) mmol/L Chloride (98-107) mmol/L Carbon Dioxide (22-32) mmol/L BUN (7-17) mg/dL Creatinine (0.52-1.04) mg/dL Estimated GFR (>60) mL/min BUN/Creatinine Ratio (6-22) Glucose (70-100) mg/dL Calcium (8.4-10.2) mg/dL Total Bilirubin (0.2-1.3) mg/dL AST (14-36) IU/L ALT (9-52) IU/L Alkaline Phosphatase (38-126) U/L Total Creatine Kinase (30-135) U/L CK-MB (CK-2) CK-MB (CK-2) Rel Index Troponin I < 0.012 (0.01-0.034) ng/mL B-Natriuretic Peptide (<100) Total Protein (6.3-8.2) g/dL Albumin (3.5-5.0) g/dL Globulin (1.7-4.1) g/dL Albumin/Globulin Ratio (1.0-2.8) Lipase (23-300) U/L Urine Dip Bedside Urine Glucose Negative Bedside Urine Bilirubin - Negative Bedside Urine Ketone - Negative Urine Specific [place] 1.010 Bedside Urine Occult Blood ++ Bedside Urine pH 6.0 Bedside Urine Protein - Negative Bedside Urine Urobilinogen - Negative Bedside Urine Nitrite - Negative Bedside Urine Leukocytes - Negative Esterase ECG Data Attestation: I personally reviewed and interpreted this ECG as follows: Prior ECG tracings: not available for review Interpretation: Normal sinus rhythm rate 80 MN interval [address] changes no T- wave inversions Discharge Plan Departure Patient Disposition: Home Clinical Impression: Atypical chest pain, Back muscle spasm Discharge Date/Time: 10/09/18 17:16 Interventions: ED Discharge Assessment Last Done: 10/09/18 17:07 Instructions: DI for Atypical Chest Pain, DI for Thoracic Back Pain, DI for Muscle Spasm Activity Restrictions/Additional Instructions: Today you have normal cardiac enzymes twice, normal chest x-ray, normal lactate lytes etc. Your EKG has been normal throughout your stay. You responded well to anti- inflammatories. Please use Motrin for your musculoskeletal pain. Please come back to the emergency department for any acute concerns such as chest pain, shortness of breath, concern of heart attack or stroke. Please follow up with primary care provider as soon as possible. Prescriptions: No Action vitamin B complex Tablet 1 tab PO DAILY Qty: 0 RF: 0 cholecalciferol (vitamin D3) [Vitamin D3] 1,000 unit Capsule 1,000 unit PO DAILY Qty: 0 RF: 0 Ildefonso-E 1 tab PO DAILY RF: 0 <Corrina Watson, - Last Filed: 10/11/18 02:00> Cosign ED Attending Sabihaature Attestation: I was immediately available in the department for consultation. Documentation has been reviewed. I agree with assessment and plan.
[2018-10-09 12:30] VITALS: BP 135/70; PULSE 74; RESP 18; O2SAT 99
[2018-10-09 12:39] LABS: Add Manual Diff / Slide Review NO; Basophils Absolute Auto 0 /uL (0-100); Basophils Percent Auto 0.6 % (0-2); Eosinophils Absolute Auto 0 /uL (0-450); Eosinophils Percent Auto 0.4 % (2-4); Hematocrit 40.8 % (36-46); Hemoglobin 13.5 g/dL (12.0-16.0); Lymphocytes Absolute Auto 1700 /uL (1100-4500); Lymphocytes Percent Auto 24.9 % (25-40); Mean Corpuscular HGB Conc 33.2 % (30-36); Mean Corpuscular Hemoglobin 31.1 PG (26-34); Mean Corpuscular Volume 93.6 fL (80-100); Monocytes Absolute Auto 300 /uL (0-900); Monocytes Percent Auto 4.6 % (3-14); Neutrophils Absolute Auto 4900 /uL (1500-7000); Neutrophils Percent Auto 69.5 % (50-75); Platelet Count 327 X10^3/uL (150-400); Red Blood Cell Count 4.36 X10^6/uL (4.0-5.2)
[2018-10-09 12:46] LABS: Prothrombin Time 11.7 SECONDS (10.1-12.7)
[2018-10-09 12:49] LABS: PTT Partial Thromboplastin Tim 29 SECONDS (26.4-36.2)
[2018-10-09 12:52] LABS: Alanine Aminotransferase 21 IU/L (9-52); Albumin 4.8 g/dL (3.5-5.0); Albumin Globulin Ratio 1.3 (1.0-2.8); Alkaline Phosphatase 53 U/L (38-126); Aspartate Aminotransferase 26 IU/L (14-36); BUN Creatinine Ratio 22.9 (6-22); Bilirubin Total 0.5 mg/dL (0.2-1.3); Blood Urea Nitrogen 16 mg/dL (7-17); Calcium 9.8 mg/dL (8.4-10.2); Carbon Dioxide 26 mmol/L (22-32); Chloride 102 mmol/L (98-107); Creatine Kinase 90 U/L (30-135); Estimated Glomerular Filt Rate > 60.0 mL/min (>60); Globulin 3.6 g/dL (1.7-4.1); Glucose 87 mg/dL (70-100); HEMOLYSIS < 15 (0-50); Lipase 124 U/L (23-300); Potassium 3.9 mmol/L (3.4-5.1); Sodium 141 mmol/L (137-145); Total Protein 8.4 g/dL (6.3-8.2)
[2018-10-09 12:54] LABS: B Type Natriuretic Peptide < 100 (<100)
[2018-10-09 13:00] VITALS: BP 129/71; PULSE 72; RESP 17; O2SAT 99
[2018-10-09 13:04] LABS: Troponin I < 0.012 ng/mL (0.01-0.034)
[2018-10-09] MEDS: SODIUM CHLORIDE 0.9% 1,000 ML 150 ML IV (13:40)
[2018-10-09] MEDS: KETOROLAC 60 MG/2 ML VIAL 30 MG IV (13:40)
[2018-10-09 14:00] VITALS: BP 111/71; PULSE 72; RESP 16; O2SAT 100
[2018-10-09 15:00] VITALS: BP 109/67; PULSE 76; RESP 13; O2SAT 100
[2018-10-09 16:18] LABS: Troponin I < 0.012 ng/mL (0.01-0.034)
[2018-10-09 17:07] VITALS: BP 117/71; PULSE 71; RESP 14; O2SAT 98
== END 2018-10-09 17:16 | disposition home or self-care (01) ==
PROVIDERS: Emergency Provider Nurse Practitioner Family
DX: R07.89 Other chest pain (principal); M62.830 Muscle spasm of back
CPT/HCPCS: 36415; 36591; 71045; 80053; 81003; 82550; 83690; 83880; 84484; 85025; 85610; 85730; 93005; 93010; 96361; 96374; 99283; 99285; J1885

== ENCOUNTER → 2021-03-18 13:10 | Outpatient (CLI) | payer OTHER, SELFPAY ==
--- NOTE | 2021-03-18 | DI.MRI.S_ITS ---
BREAST MRI OF BOTH BREASTS- WITH CAD: 03/18/2021 CLINICAL: Left breast nipple discharge. Comparison is made to exams dated: 01/28/2021 ultrasound, 01/28/2021 mammogram, 12/06/2018 mammogram, and 03/16/2015 mammogram - [facility]. Interpretation of this MRI was correlated with available mammograms and ultrasounds. Axial T1, T2, sagittal T1, and pre and post contrast T1 images were obtained with a dedicated breast coil. Post processing was performed including computer aided calculations of any tumor volumes and dimensions, 2D, and 3D multiplanar reconstruction. Bilateral background breast enhancement is moderate and asymmetric. There is an approximately 8 mm mass in the lateral aspect of the left retroareolar breast with adjacent linear non-mass enhancement extending anteriorly and posteriorly from the mass (series 18:73; 6:70; and 11:70). No suspicious enhancement or lymphadenopathy otherwise. IMPRESSION: SUSPICIOUS OF MALIGNANCY Small left retroareolar mass and adjacent linear non-mass enhancement. A second look US is recommended to determine if this is sonographically visible which would allow for an US-guided biopsy. If not sonographically visible, then an MR guided biopsy should be performed. This exam was interpreted at Station ID: [id number]. Electronically Signed By: Devonte Rodriguez M.D. jr/:03/18/2021 15:47:59 letter sent: Biopsy Required ACR BI-RADS Category 4: Suspicious abnormality 3344F
== END ==
PROVIDERS: PCP Student in an Organized Health Care Education/Training Program; Referring Provider Student in an Organized Health Care Education/Training Program; Visit Provider Student in an Organized Health Care Education/Training Program
DX: N64.52 Nipple discharge (principal); N63.25 Unspecified lump in the left breast, overlapping quadrants
CPT/HCPCS: 77049; A9579

== ENCOUNTER → 2021-04-01 07:33 | Outpatient (CLI) | payer OTHER, SELFPAY ==
--- NOTE | 2021-04-01 | DI.US.S_ITS ---
LIMITED ULTRASOUND OF LEFT BREAST: 04/01/2021 CLINICAL: Patient returns today to evaluate a focal asymmetry in the left breast. Comparison is made to exams dated: 03/18/2021 breast MRI - [facility], 01/28/2021 ultrasound, 01/28/2021 mammogram, 12/06/2018 mammogram, 03/16/2015 mammogram, and 06/25/2014 ultrasound - [facility]. Color flow and real-time ultrasound of the left breast retroareolar were performed on the areas of interest. There is a dilated duct in the left breast at 3 o'clock in the retroareolar region measuring up to 0.8 cm. This correlates with MRI findings and the nipple discharge. Color flow imaging demonstrates that there is no vascularity present. However, the small adjacent mass seen on MRI is not discretely visualized. IMPRESSION: SUSPICIOUS OF MALIGNANCY The dilated duct in the left breast is indeterminate. The adjacent small mass seen on MRI is not visualized sonographically. MRI-guided biopsy of the mass is recommended. Management of the dilated duct will be dependent on results of the biopsy. MRI-guided biopsy of the left breast mass seen on prior MRI is recommended. This exam was interpreted at Station ID: [id number]. Electronically Signed By: Miles boss/:04/01/2021 11:26:34 letter sent: Biopsy Required Ultrasound BI-RADS: 4 Suspicious for malignancy
== END ==
PROVIDERS: PCP Student in an Organized Health Care Education/Training Program; Referring Provider Student in an Organized Health Care Education/Training Program; Visit Provider Student in an Organized Health Care Education/Training Program
DX: R92.8 Other abnormal and inconclusive findings on diagnostic imaging of breast (principal); N60.42 Mammary duct ectasia of left breast
CPT/HCPCS: 76642

== ENCOUNTER → 2024-04-11 15:20 | Outpatient (CLI) | payer OTHER, SELFPAY ==
--- NOTE | 2024-04-11 15:22 | DI.MG.S_ITS ---
BILATERAL DIGITAL SCREENING MAMMOGRAM 3D/2D WITH CAD: 04/11/2024 CLINICAL: Routine screening. Comparison is made to exams dated: 09/26/2021 breast MRI, 01/28/2021 mammogram, 12/06/2018 mammogram, and 03/16/2015 mammogram - [facility]. The breasts are extremely dense, which lowers the sensitivity of mammography (category d />75% glandular tissue). Current study was also evaluated with a Computer Aided Detection (CAD) system. There are benign calcifications in both breasts. There also is a biopsy clip in the left breast. No significant masses, calcifications, or other findings are seen in either breast. There has been no significant interval change. IMPRESSION: BENIGN There is no mammographic evidence of malignancy. A 1 year screening mammogram is recommended. Based on Tyrer-Cuzick model (a risk assessment model), the patient's lifetime risk is 22.8% and her 10 year risk is 7.8%. If a patient has an elevated risk, a more comprehensive evaluation should be considered and/or a referral to a genetic counselor. The [place] [employer], [place] [employer], and NCCN Guidelines advise the consideration of Breast MRI as an adjunct to screening mammography in patients whose Lifetime risk to develop breast cancer is 20% or higher. This exam was interpreted at Station ID: [id number]. NOTE: For mammograms, a report in lay terms will be sent to the patient. Approximately 15% of breast malignancies will not be visualized mammographically. In the management of a palpable breast mass, a negative mammogram must not discourage biopsy of a clinically suspicious lesion. Electronically Signed By: Bryant christopher/ty:04/12/2024 15:00:46 letter sent: Normal Exam ACR BI-RADS Category 2: Benign
== END ==
LOC: MAMMO 15:21
PROVIDERS: PCP Registered Nurse; Referring Provider Registered Nurse; Visit Provider Registered Nurse
DX: Z12.31 Encounter for screening mammogram for malignant neoplasm of breast (principal); R92.343 Mammographic extreme density, bilateral breasts
CPT/HCPCS: 77063; 77067

== ENCOUNTER → 2024-12-10 08:37 | Outpatient (CLI) | payer OTHER, SELFPAY ==
--- NOTE | 2024-12-10 08:38 | DI.MRI.S_ITS ---
MR breast BI wo/w con: 12/10/2024. BI-RADS: 3 CLINICAL: 59-year old female for bilateral diagnostic breast MRI. No personal or first-degree family history of breast cancer. Current reported family history of breast cancer: maternal aunt's daughter. The patient had a prior left breast biopsy. PRIOR EXAMS 04/11/2024, 09/26/2021, 04/20/2021, 04/01/2021, 03/18/2021, 01/28/2021, 12/06/2018, 03/16/2015. MRI TECHNIQUE Bilateral breast MRI was performed on a 1.5 Katherine magnet using a dedicated breast coil with mild compression. Axial T1 and T2 STIR sequences were obtained. Dynamic contrast enhanced VIBRANT fat-suppressed sequences were obtained. Delayed sagittal high resolution or sagittal reconstructed isotropic sequence was also obtained. Subtraction images and maximum intensity projection images were obtained. The study was evaluated using Sabred software. Gadavist was injected intravenously: mL. IV Contrast: 20 ml ProHance. FIBROGLANDULAR TISSUE Bilateral: C. Heterogeneous fibroglandular tissue. BACKGROUND PARENCHYMAL ENHANCEMENT Bilateral: Moderate symmetrical background parenchymal enhancement. BREAST FINDINGS Right: Lower Outer at 8:30, Anterior depth, measuring 1.1cm: There is non-mass enhancement in focal distribution with kinetic enhancement curve showing slow initial phase and persistent pattern on delayed phase. On non-contrast sequences this non-mass enhancement shows high signal intensity on STIR/T2-weighted sequences. This was present previously, less enhancing, but similar size. Right: There are multiple non-enhancing ectatic ducts. On non-contrast sequences these ducts show high signal intensity on T1-weighted sequences. These ducts are not significantly changed in size, extent, appearance, signal or enhancement characteristics. Left Artifact from previous MRI biopsy in the upper left breast. No adjacent visible abnormalities. There is a non-enhancing ectatic duct. On non-contrast sequences this duct shows high signal intensity on T1-weighted sequences. CHEST FINDINGS Stable, mildly prominent, bilateral axillary lymph nodes. No internal mammary chain adenopathy. No abnormality seen in the visible portions of the heart, lungs, chest wall, and liver. IMPRESSION: Right (Non-Mass): Lower Outer at 8:30, Anterior depth, measuring 1.1cm * Probably Benign. Left * No evidence of malignancy with benign findings. RECOMMENDATIONS Right: Lower Outer at 8:30, Anterior depth * Six month followup with diagnostic breast MRI. Bilateral * Annual screening mammography in four months (Due March 2025). OVERALL ASSESSMENT CATEGORY BI-RADS-3: Probably Benign. ELECTRONICALLY SIGNED: Sydni Verduzco M.D. on 12/11/2024 at 04:25:13 PM PT Interpreting Station ID: [id number]
== END ==
LOC: MRI 08:37
PROVIDERS: PCP Registered Nurse; Referring Provider Registered Nurse; Visit Provider Registered Nurse
DX: R92.8 Other abnormal and inconclusive findings on diagnostic imaging of breast (principal); Z91.89 Other specified personal risk factors, not elsewhere classified; Z80.3 Family history of malignant neoplasm of breast; R59.0 Localized enlarged lymph nodes
CPT/HCPCS: 77049; A9579

== ENCOUNTER → 2024-12-16 07:27 | Outpatient (CLI) | payer OTHER, SELFPAY ==
--- NOTE | 2024-12-16 07:28 | DI.US.S_ITS ---
PROCEDURE: US THYROID INDICATIONS: Thyromegaly TECHNIQUE: Real-time scanning was performed of the thyroid gland, with image documentation. COMPARISON: None. FINDINGS: Thyroid: Right lobe measures 4.8 x 2.0 x 2.4 cm. Left lobe measures 3.7 x 0.9 x 0.9 cm. Isthmus is 1.2 mm thick. Echotexture is homogeneous. Nodule number: 1 Location: Right mid inferior Size: 3.6 x 1.8 x 2.1 cm. Composition: Predominantly solid Echogenicity: Hypoechoic Shape: wider than tall. Margins: Smooth Echogenic foci: Macrocalcification Total points: 5 ACR TI-RADS category: 4 IMPRESSION: Right thyroid TR4 nodule. Recommend ultrasound-guided fine-needle aspiration for further evaluation. ACR TI-RADS definitions and recommendations: TI-RADS 1 (benign): 0 points. FNA not needed. TI-RADS 2 (not suspicious): 2 points. FNA not needed. TI-RADS 3: 3 points. * FNA if 2.5 cm or larger, follow up if 1.5 cm or larger (at 1, 3, and 5 years). TI-RADS 4: 4-6 points. * FNA if 1.5 cm or larger, follow up if 1 cm or larger (at 1, 2, 3, and 5 years). TI-RADS 5: 7 points or more. * FNA if 1 cm or larger, follow up if 0.5 cm or larger (every year for 5 years). Dictated by: Bessy DICKENS Interpreted: Arnol Hopkins MD on 12/16/2024 at 10:43 Transcribed by: KACIE on 12/16/2024 at 10:49 Approved by: Arnol Hopkins M.D. on 12/16/2024 at 20:58
== END ==
LOC: US 07:27
PROVIDERS: PCP Registered Nurse; Referring Provider Registered Nurse; Visit Provider Registered Nurse
DX: E01.0 Iodine-deficiency related diffuse (endemic) goiter (principal)
CPT/HCPCS: 76536

== ENCOUNTER → 2025-02-04 10:53 | Outpatient (CLI) | payer OTHER, SELFPAY ==
--- NOTE | 2025-02-04 10:54 | DI.US.S_ITS ---
PROCEDURE: US FINE NEEDLE ASPIRATION INDICATIONS: right thyroid nodule TECHNIQUE: The indications, alternatives, benefits, risks, and complications of the procedure were explained to the patient. Written informed consent was obtained and placed in the chart. The area of interest was examined sonographically and a site was chosen for ultrasound guided percutaneous sampling. The skin was prepared and draped in the usual fashion, and anesthetized with 1% lidocaine infiltrated from the skin down to the lesion. Multiple passes were then performed, with contents emptied into an appropriate pathology specimen container. A bandage was applied to the area of access at completion of the study. COMPARISON: [facility], , US THYROID, 12/16/2024, 7:40. FINDINGS: Location(s) of lesion(s): Right thyroid Number of passes: 6 Medications: 1% lidocaine for local anaesthesia. Complications: None. IMPRESSION: Successful ultrasound-guided right thyroid nodule fine needle aspiration, with cytology results pending. Dictated by: Aneudy DICKENS Interpreted: Mateus Rodriguez MD on 02/04/2025 at 13:26 Transcribed by: LUIS MIGUEL on 02/04/2025 at 13:27 Approved by: Mateus Rodriguez M.D. on 02/05/2025 at 15:40
--- NOTE | 2025-02-04 12:42 | PATH_ITS ---
Note [facility] Accession Number: [id number] TESTS RESULT FLAG UNITS REF RANGE LAB Clinician Provided Cytology Information No. of containers..01 Other (Miscellaneous) No. of containers..02 Previously Prepared Cytology Slide Source: RIGHT THYROID DIAGNOSIS: RIGHT THYROID NODULE, FINE NEEDLE ASPIRATION. NEGATIVE FOR MALIGNANT CELLS. ADEQUATE FOR EVALUATION. FOLLICULAR GROUPS ARE PRESENT. BENIGN FOLLICULAR (GOITEROUS) NODULE ([place] CATEGORY II), SEE COMMENT. COMMENT: MICROSCOPIC EXAMINATION REVEALS A MILDLY CELLULAR ASPIRATE, COMPOSED OF COLLOID, FOLLICULAR GROUPS WITHOUT SIGNIFICANT CYTOLOGIC OR ARCHITECTURAL ATYPIA, AND BACKGROUND MACROPHAGES. THESE FINDINGS SUPPORT A BENIGN FOLLICULAR (GOITEROUS) NODULE. CORRELATION WITH CLINICAL AND RADIOGRAPHIC FINDINGS IS RECOMMENDED. ACCORDING TO THE [place] REPORTING SYSTEM FOR THYROID CYTOPATHOLOGY, THE RISK OF MALIGNANCY IN THE CATEGORY BENIGN-CATEGORY II IS 0-3%; THEREFORE RECOMMEND CONTINUED ULTRASOUND SURVEILLANCE WITH REPEAT FNA IF THE NODULE SIGNIFICANTLY INCREASES IN SIZE. Pathologist ICD10: 01 E04.1 Signed out by: Cheyanne Steven MD, Pathologist NPI- [id number] Performed by: Joby Meek, Fulfillment Coordinator ([facility]) Gross description: 30 CC, RED, CLEAR RECIEVED: IN CYTOLYT WITH 6 ALCOHOL FIXED AND 6 QUICK STAINED SLIDES ALSO 1 RNA VIAL WILL ON 09-01-2026.VO /VDU 02/05/2025 0724 Local FLAG LEGEND: L-Low Normal,H-High Normal,LL-Alert Low,HH-Alert High <-Panic Low,>-Panic High,A-Abnormal,AA-Critical Abnormal Performed at: 01 =[facility], [place] [address] Miles Christianson MD, Performed at: [address], [place], [place] [id number] MD Miles Christianson MD Phone: [phone]
== END ==
PROVIDERS: PCP Registered Nurse; Referring Provider Registered Nurse; Visit Provider Registered Nurse
DX: E04.1 Nontoxic single thyroid nodule (principal)
CPT/HCPCS: 10005